=== PATIENT | female | born 1950 | race Caucasian/White ===

== ENCOUNTER 2024-07-31 06:59 | Day surgery (SDC) | payer OTHER ==
[~2024-07-31] VITALS: Ht 175.3 cm; Wt 72.6 kg
[2024-07-31] MEDS ORDERED: fentaNYL CITRATE/PF 100 MCG/2 ML AMP ONE (07:35)
[2024-07-31] MEDS ORDERED: MIDAZOLAM HCL 5 MG/5 ML VIAL ONE (07:35)
[2024-07-31] MEDS ORDERED: MEPERIDINE 100 MG INJ. 100 MG/ML VIAL ONE (09:22)
[2024-07-31 18:10] VITALS: BP_SYST 140; PULSE 68; RESP 16; TEMP 97.7; O2SAT 97
== END 2024-07-31 10:41 | disposition home or self-care (01) ==
LOC: SDS 06:59 → SMU 07:00 → SDS 10:41
PROVIDERS: ATTEND Student in an Organized Health Care Education/Training Program
DX: Z12.11 Encounter for screening for malignant neoplasm of colon (principal); K64.4 Residual hemorrhoidal skin tags; K64.8 Other hemorrhoids; F32.A Depression, unspecified; Z91.013 Allergy to seafood; Z79.899 Other long term (current) drug therapy; Z87.891 Personal history of nicotine dependence; Z98.890 Other specified postprocedural states
CPT/HCPCS: 45378; 99152; G0378; J2250; J2175; J3010